=== PATIENT | female | born 2000 | race Two or more races ===

== ENCOUNTER → 2020-05-31 10:43 | Outpatient (CLI) | payer OTHER | END | disposition home or self-care (01) | LOC: PPH VACUNA 10:43 | DX: Z23 Encounter for immunization (principal) ==

== ENCOUNTER 2020-09-18 10:03 | Emergency (ER) | payer OTHER ==
[~2020-09-18] VITALS: Ht 167.6 cm; Wt 72.6 kg
[2020-09-18] MEDS ORDERED: ZITHROMAX500 MG PO (13:44)
== END 2020-09-18 13:49 | disposition home or self-care (01) ==
LOC: ER 10:03
DX: J06.9 Acute upper respiratory infection, unspecified (principal); Z20.822 Contact with and (suspected) exposure to COVID-19

== ENCOUNTER 2022-06-01 05:50 | Day surgery (SDC) | payer OTHER ==
[~2022-06-01 05:50] MED LIST: ZITHROMAX500 MG PO
== END 2022-06-01 12:30 | disposition home or self-care (01) ==
LOC: CIR.AMB 05:50
PROVIDERS: ATTEND Obstetrics & Gynecology
DX: N84.0 Polyp of corpus uteri (principal); N93.9 Abnormal uterine and vaginal bleeding, unspecified; Z91.040 Latex allergy status; Z20.822 Contact with and (suspected) exposure to COVID-19

== ENCOUNTER 2024-11-26 13:31 | Emergency (ER) | payer OTHER ==
[~2024-11-26] VITALS: Ht 167.6 cm; Wt 78.0 kg
[2024-11-26] MEDS ORDERED: PRENATABS RX T1 EACH (13:59)
[2024-11-26] MEDS ORDERED: 0.9 % SODIUM CHLORIDE 1,000 ML IV ONE (15:00)
[2024-11-26] MEDS ORDERED: FAMOTIDINE/PF 20 MG/2 ML VIAL IV ONE (15:00)
[2024-11-26] MEDS ORDERED: ONDANSETRON HCL 2 MG/ML VIAL IV ONE (15:00)
[2024-11-26] MEDS ORDERED: FAMOTIDINE/PF 20 MG/2 ML VIAL ONE (15:02)
[2024-11-26] MEDS ORDERED: ONDANSETRON HCL 2 MG/ML VIAL ONE (15:02)
[2024-11-26 15:59] LABS: BASO % 0.3 % (0.1-1.2); EOS # 0.16 (0.04-0.54); EOS % 1.4 % (0.7-7.0); LYMPH # 2.31 (1.18-3.74); LYMPH % 19.7 % (19.3-53.1); MEAN PLATELET VOLUME 10.70 fl (9.4-12.4); MONO # 0.85 (0.24-0.82); MONO % 7.2 % (4.7-12.5); NEUT # 8.35 (1.56-6.13); NEUT % 71.1 % (34.0-71.1); RED CELL DISTRIBUTION WIDTH 16.5 % (11.6-14.4)
[2024-11-26 16:13] LABS: ALT/SGPT 14.0 U/L (12-78); AST/SGOT 12.0 U/L (15-37); BILIRUBIN TOTAL 0.29 mg/dL (0.3-1.2); BUN CREA RATIO 11.0 (7.0-25.0); CREATININE SERUM 0.61 mg/dL (0.55-1.02); GFR 118.56; GLOBULINA 3.9 G/DL (2.4-3.5); GLUCOSE FASTING 81.0 mg/dL (65-100); OSMOLALITY SERUM 275.0 MOSM/KG (275-295)
[2024-11-26 16:26] LABS: COVID-19 AG NEGATIVE (NEGATIVE)
[2024-11-26 19:04] LABS: URINE APPEARANCE Clear; URINE BILIRRUBIN Negative (NEGATIVE); URINE BLOOD Negative; URINE COLOR Yellow; URINE GLUCOSE Negative (NEGATIVE); URINE KETONE Negative (NEGATIVE); URINE LEUKOCYTE Trace; URINE NITRATE Negative; URINE PROTEIN Negative (NEGATIVE); URINE UROBILINOGEN 1.0 E.U./dl
[2024-11-26 19:08] LABS: URINE BACTERIA 684.0 uL (0.0-1933); URINE EPITHELIAL CELLS 13.5 uL (0.0-38.8); URINE RBC 5.5 uL (0.0-20.8); URINE WBC 20.1 uL (0.0-23.2)
[2024-11-26 19:14] LABS: URINE CAST 0.00 uL (0.0-1.40)
== END 2024-11-26 20:14 | disposition home or self-care (01) ==
LOC: ER 13:32
DX: O99.611 Diseases of the digestive system complicating pregnancy, first trimester (principal); K29.70 Gastritis, unspecified, without bleeding; K92.89 Other specified diseases of the digestive system; Z3A.12 12 weeks gestation of pregnancy; K52.89 Other specified noninfective gastroenteritis and colitis; Z91.040 Latex allergy status; Z20.822 Contact with and (suspected) exposure to COVID-19; E16.1 Other hypoglycemia

== ENCOUNTER 2024-12-06 11:04 | Outpatient (CLI) | payer OTHER ==
[~2024-12-06 11:04] MED LIST changes: +PRENATABS RX T1 EACH
== END 2024-12-06 11:05 | disposition home or self-care (01) ==
LOC: PRENATAL 11:04
PROVIDERS: ATTEND Obstetrics & Gynecology Maternal & Fetal Medicine
DX: O36.80X0 Pregnancy with inconclusive fetal viability, not applicable or unspecified (principal); Z36.82 Encounter for antenatal screening for nuchal translucency; Z14.8 Genetic carrier of other disease; O26.23 Pregnancy care for patient with recurrent pregnancy loss, third trimester; Z3A.13 13 weeks gestation of pregnancy

== ENCOUNTER 2025-01-08 21:43 | Emergency (ER) | payer OTHER ==
[~2025-01-08] VITALS: Ht 162.6 cm; Wt 74.8 kg
[2025-01-08] MEDS ORDERED: 0.9 % SODIUM CHLORIDE 1,000 ML IV STA (23:39)
[2025-01-09 02:19] LABS: BASO % 0.2 % (0.1-1.2); EOS # 0.23 (0.04-0.54); EOS % 1.6 % (0.7-7.0); LYMPH # 2.85 (1.18-3.74); LYMPH % 19.9 % (19.3-53.1); MEAN PLATELET VOLUME 9.80 fl (9.4-12.4); MONO # 1.22 (0.24-0.82); MONO % 8.5 % (4.7-12.5); NEUT # 9.93 (1.56-6.13); NEUT % 69.5 % (34.0-71.1); RED CELL DISTRIBUTION WIDTH 16.6 % (11.6-14.4)
[2025-01-09 02:21] LABS: ERYTHROCYTE SEDIMENTATION RATE 54 mm/hr (0-20)
[2025-01-09 02:35] LABS: INR 0.98
[2025-01-09 02:36] LABS: URINE APPEARANCE Cloudy; URINE BILIRRUBIN Negative (NEGATIVE); URINE BLOOD Negative; URINE COLOR Yellow; URINE GLUCOSE Negative (NEGATIVE); URINE KETONE Negative (NEGATIVE); URINE LEUKOCYTE Moderate; URINE NITRATE Positive; URINE PROTEIN Negative (NEGATIVE); URINE UROBILINOGEN 0.2 E.U./dl
[2025-01-09 02:40] LABS: URINE EPITHELIAL CELLS 141.8 uL (0.0-38.8); URINE RBC 42.0 uL (0.0-20.8); URINE WBC 190.6 uL (0.0-23.2)
[2025-01-09 02:48] LABS: URINE BACTERIA > 9821.5 uL (0.0-1933); URINE CAST 1.31 uL (0.0-1.40)
[2025-01-09 02:54] LABS: ALT/SGPT 18.0 U/L (12-78); AST/SGOT 17.0 U/L (15-37); BILIRUBIN TOTAL 0.21 mg/dL (0.3-1.2); BUN CREA RATIO 14.0 (7.0-25.0); CREATININE SERUM 0.56 mg/dL (0.55-1.02); GFR 130.86; GLOBULINA 3.7 G/DL (2.4-3.5); GLUCOSE FASTING 75.0 mg/dL (65-100); OSMOLALITY SERUM 276.0 MOSM/KG (275-295)
[2025-01-09] MEDS ORDERED: CEFTRIAXONE SODIUM 1,000 MG VIAL IM STA (04:06)
[2025-01-09] MEDS ORDERED: CEPHALEXIN500 M1 PO (04:22)
== END 2025-01-09 06:40 | disposition home or self-care (01) ==
LOC: ER 21:44
PROVIDERS: Physician Assistant Medical
DX: O26.892 Other specified pregnancy related conditions, second trimester (principal); Z3A.18 18 weeks gestation of pregnancy; R10.20 Pelvic and perineal pain unspecified side; N39.0 Urinary tract infection, site not specified; Z91.040 Latex allergy status

== ENCOUNTER 2025-01-17 12:26 | Outpatient (CLI) | payer OTHER ==
[~2025-01-17 12:26] MED LIST changes: +CEPHALEXIN500 M1 PO
== END 2025-01-17 12:27 | disposition home or self-care (01) ==
LOC: PRENATAL 12:26
PROVIDERS: ATTEND Obstetrics & Gynecology Maternal & Fetal Medicine
DX: O44.02 Complete placenta previa NOS or without hemorrhage, second trimester (principal); O26.22 Pregnancy care for patient with recurrent pregnancy loss, second trimester; Z3A.22 22 weeks gestation of pregnancy